=== PATIENT | male | born 1935 | race Caucasian/White ===

== ENCOUNTER → 2016-09-18 15:51 | Outpatient (CLI) | payer MEDICARE, BC | END | disposition home or self-care (01) | LOC: D.US 15:30 | DX: R60.0 Localized edema (principal) ==

== ENCOUNTER → 2020-02-09 08:02 | Outpatient (CLI) | payer MEDICARE, BC | END | disposition home or self-care (01) | LOC: D.CT 02-07 10:00 | PROVIDERS: ATTEND Family Medicine | DX: R68.89 Other general symptoms and signs (principal) ==

== ENCOUNTER 2020-11-06 19:37 | Emergency (ER) | payer MEDICARE, BC ==
[~2020-11-06] VITALS: Ht 175.3 cm; Wt 72.6 kg
[2020-11-06 19:40] VITALS: Ht 175.3 cm; Wt 72.6 kg
[2020-11-06] MEDS ORDERED: UROXATRAL10 MG PO (19:42)
[2020-11-06] MEDS ORDERED: XANAX2 MG PO (19:42)
[2020-11-06] MEDS ORDERED: CYCLOBENZAPRINE10 MG PO (19:43)
[2020-11-06] MEDS ORDERED: REMERON15 MG PO (19:44)
[2020-11-06] MEDS ORDERED: MUCINEX600 MG PO (19:44)
[2020-11-06] MEDS ORDERED: LOMOTIL 2.5-0.1 EAC1 PO (19:44)
[2020-11-06] MEDS ORDERED: PROTONIX40 MG PO (19:45)
[2020-11-06 20:38] LABS: BASOPHILS 0.5 % (0-2); EOSINOPHILS 1.2 % (0-7); HEMATOCRIT 32.5 % (42.0-54.0); HEMOGLOBIN 10.8 g/dL (13.5-17.5); IMMATURE GRANULOCYTES 0.3 % (0-5); LYMPHOCYTE ABS# 2.64 10x3/uL (1.32-3.57); LYMPHOCYTES 26.5 % (15-50); MCH 29.1 pg (26.0-34.0); MCHC 33.2 g/dL (31.0-37.0); MCV 87.6 fL (80.0-100.0); MEAN PLATELET VOLUME 9.4 fL (7.4-10.4); MONOCYTES 15.1 % (2-11); NEUTROPHIL ABS# 5.62 10x3/uL (1.78-5.38); NEUTROPHILS 56.4 % (40-80); PLATELET COUNT 554 10x3/uL (130-400); RBC 3.71 10x6/uL (4.20-6.10); RDW 12.8 % (11.5-14.5)
[2020-11-06 20:47] LABS: BILIRUBIN NEGATIVE (NEGATIVE); KETONE SMALL mg/dL (NEGATIVE); NITRITE NEGATIVE (NEGATIVE); UROBILINOGEN NORMAL mg/dL (< 2)
[2020-11-06 20:58] LABS: INR 1.37 (0.85-1.17); PROTIME 15.7 SECONDS (11.6-15.0)
[2020-11-06 21:01] LABS: D-DIMER-QUANTITATIVE 2.52 ug/mLFEU (0.20-0.54)
[2020-11-06 21:03] LABS: CALC OSMOLALITY 282 mosm/kg (275-300); CALCIUM 9.3 mg/dL (8.5-10.1); CHLORIDE - SERUM 104 mmol/L (98-107); CREATININE - SERUM 1.7 mg/dL (0.6-1.3); GLUCOSE 125 mg/dL (74-106); POTASSIUM - SERUM 3.8 mmol/L (3.5-5.1); SODIUM 139 mmol/L (136-145); UREA NITROGEN 24 mg/dL (7-18); eGFR NON AFRICAN AMERICAN 41 mL/min (90-120)
[2020-11-06 21:12] LABS: ALBUMIN 3.2 g/dL (3.4-5.0); ALKALINE PHOSPHATASE 95 U/L (30-120); ALT (SGPT) 25 U/L (10-68); BILIRUBIN - TOTAL 0.41 mg/dL (0.2-1.3); C-REACTIVE PROTEIN 0.8 mg/dL (0.0-0.9); LIPASE 186 U/L (73-393); PROTEIN - SERUM 7.6 g/dL (6.4-8.2); TROPONIN-I < 0.017 ng/mL (0.000-0.060)
[2020-11-06 23:06] VITALS: BP 132/85
== END 2020-11-06 23:06 | disposition home or self-care (01) ==
LOC: D.ER 19:37
PROVIDERS: Family Medicine
DX: R10.13 Epigastric pain (principal)